=== PATIENT | female | born 1955 | race African-American/Black ===

== ENCOUNTER 2019-12-06 14:51 | Observation (INO) | payer MEDICARE ==
--- NOTE | 2019-12-06 16:01 | RAD ---
Chest 2 views HISTORY: Chest pain. FINDINGS: Cardiac silhouette and pulmonary vasculature are unremarkable. Mediastinum is midline. No confluent airspace consolidation, pneumothorax, or pleural fluid. There are prominent degenerative changes of the thoracic spine and shoulders. IMPRESSION : No active cardiopulmonary abnormalities are demonstrated.
[2019-12-06] MEDS ORDERED: Mag-Al 1200 mg/1200 mg/30 ML UDCUP ONE (16:16)
[2019-12-06] MEDS ORDERED: Aspirin Chewable 81 MG TAB ONE (16:16)
[2019-12-06] MEDS ORDERED: Lidocaine Viscous Sol 2% 15 ml UD Cup ONE (16:16)
[2019-12-06 16:24] LABS: #Eosinphils 0.2 thou/uL (0.0-0.7); #Lymphocytes 2.6 thou/uL (1.20-3.40); #Monocytes 0.8 thou/uL (0.11-0.59); #Neutrophils 2.2 thou/uL (1.40-6.50); %Basophils 0.3 % (0.0-1.0); %Eosinophils 3.9 % (0.0-10.0); %Lymphocytes 45.2 % (21.0-51.0); %Monocytes 13.1 % (0.0-10.0); %Neutrophils 37.5 % (42.0-75.0); Hemoglobin 8.9 g/dL (12.0-16.0); Mean Corpuscular HGB CONC 30.2 g/dL (32.0-36.0); Mean Corpuscular Hemoglobin 22.6 pg (27.0-31.0); Mean Corpuscular Volume 75.1 fL (78.0-98.0); Mean Platelet Volume 9.6 fL (7.4-10.4); Platelet Count 301 thou/uL (130-400); RBC Distribution Width 16.6 % (11.5-14.5); Red Blood Cell (RBC) Count 3.94 mill/uL (4.20-5.40); White Blood Cell (WBC) Count 5.8 thou/uL (4.8-10.8)
[2019-12-06 16:48] LABS: ALT (SGPT) 16 U/L (8-55); AST (SGOT) 21 U/L (5-34); Albumin 4.1 g/dL (3.4-4.8); Alkaline Phosphatase 121 U/L (40-110); Anion Gap 12 mmol/L (10-20); BUN (Urea Nitrogen) 19 mg/dL (9.8-20.1); Bilirubin, Total 0.2 mg/dL (0.2-1.2); CK (CPK) 222 U/L (29-168); Calc. Creatinine Clearance 0 mL/min (70-130); Carbon Dioxide 26 mmol/L (23-31); Chloride 109 mmol/L (98-107); Estimated GFR-MDRD 61; Globulin 2.7 g/dL (2.4-3.5); Glucose 82 mg/dL (80-115); Lipase 21 U/L (8-78); Potassium 4.4 mmol/L (3.5-5.1); Protein, Total 6.8 g/dL (6.0-8.3); Sodium 143 mmol/L (136-145)
--- NOTE | 2019-12-06 17:56 | PDOC.FPRHP ---
- History of Present Illness Chief Complaint: CP History of Present Illness: 64 y/o F with pmhx of GERD, chronic back pain, HTN, and HLD presents to ED with CP in evenings for X3 days. PT states she has had upper right back pain that radiates to the chest n the evneings the past 3 days, described as sharp and grabbing pain substernally. This pain is exacerbated by bending over and movement. Alleviated by nothing. she c/o acid reflux increased the past 3 days Pt states she has been taking ibuprofen, tramadol and "advil," the past few days due to the back pain. She did not know advil and ibuprofen were the same drug. Had a EGD and colon 06/2019 but unsure of the results. c/o dizziness and vertigo. denies n/v/d/abd pain. ED course: given a GI cocktail and ASA 325 mg, which alleviated her pain. CXR: no acute findings trop 0.024 CK 222 h/h 8.9/29.6 cr 1.09 - Allergies/Adverse Reactions Allergies Allergy/AdvReac Type Severity Reaction Status Date / Time No Known Allergies Allergy Unverified 12/06/19 19:05 - Home Medications Medication Instructions Recorded Confirmed Type Gabapentin 300 mg PO BID 12/06/19 12/06/19 History Hydrochlorothiazide 12.5 mg PO DAILY 12/06/19 12/06/19 History Meclizine HCl 25 mg PO BID PRN 12/06/19 12/06/19 History Pantoprazole Sodium 1 tab PO DAILY 12/06/19 12/06/19 History amLODIPine Bes/Olmesartan Med 1 each PO DAILY 12/06/19 12/06/19 History [Kayli 10-20 mg Tablet] traMADol HCl [Tramadol HCl] 50 mg PO TID PRN 12/06/19 12/06/19 History - History PMHx: GERD, HTN, HLD, chronic back pain PSHx: appendectomy, cholecystectomy, carpal tunnel sx, hysterectomy, tonsilectomy FHx: mother: uterine CA, CVA and [place] Social: quit smoking in 2001, prior 20 pack year. denies drug use. Drinks occasional glass of wine. - Review of Systems General: denies: fever/chills Eyes: denies: vision changes ENT: denies: nasal congestion Respiratory: denies: cough, shortness of breath Cardiovascular: reports: chest pain. denies: palpitation, edema, paroxysmal nocturnal dyspnea, orthopnea Gastrointestinal: denies: nausea, vomiting, diarrhea, constipation, abdominal pain Skin: denies: rashes Musculoskeletal: reports: pain (r upper back), tenderness, stiffness Neurological: denies: numbness, syncope Psychological: denies: anxiety - Vital signs BP: 142/66 HR: 86 RR: 16 Tmax: 98.3F Pox: 99% on ra Wt: - Physical Exam Constitutional: NAD, awake, alert and oriented, well developed -Constitutional: sitting up eating dinner upon initial exam. HEENT: normocephalic and atraumatic, PERRLA, EOMI, conjunctiva clear, grossly normal vision, grossly normal hearing, MMM Neck: supple, trachea midline Heart: RRR, normal S1/S2, no murmurs/rubs/gallops Lungs: no respiratory distress, good air movement, no wheezing, other (slight bibasilar crackles) Abdomen: soft, non-tender, bowel sounds present Musculoskeletal: normal structure, normal tone, ROM grossly normal -Musculoskeletal: TTP of R thoracic spine paraspinal musculature. TART changes to R thoracic spine. Neurological: no focal deficit, normal sensation Skin: no rash/lesions, capillary refill <2 seconds Heme/Lymphatic: no unusual bruising or bleeding, no purpura, no petechia Psychiatric: normal mood and affect, good judgment and insight, intact recent and remote memory FMR H&P: Results - Labs Result Diagrams: 12/07/19 03:58 12/07/19 03:58 Lab results: WBC 5.8 thou/uL (4.8-10.8) 12/06/19 16:08 Hgb 8.9 g/dL (12.0-16.0) L 12/06/19 16:08 Hct 29.6 % (36.0-47.0) L 12/06/19 16:08 MCV 75.1 fL (78.0-98.0) L 12/06/19 16:08 Plt Count 301 thou/uL (130-400) 12/06/19 16:08 Neutrophils % 37.5 % (42.0-75.0) L 12/06/19 16:08 Sodium 143 mmol/L (136-145) 12/06/19 16:08 Potassium 4.4 mmol/L (3.5-5.1) 12/06/19 16:08 Chloride 109 mmol/L (98-107) H 12/06/19 16:08 Carbon Dioxide 26 mmol/L (23-31) 12/06/19 16:08 BUN 19 mg/dL (9.8-20.1) 12/06/19 16:08 Creatinine 1.09 mg/dL (0.6-1.1) 12/06/19 16:08 Glucose 82 mg/dL (80-115) 12/06/19 16:08 Calcium 9.0 mg/dL (7.8-10.44) 12/06/19 16:08 Total Bilirubin 0.2 mg/dL (0.2-1.2) 12/06/19 16:08 AST 21 U/L (5-34) 12/06/19 16:08 ALT 16 U/L (8-55) 12/06/19 16:08 Alkaline Phosphatase 121 U/L (40-110) H 12/06/19 16:08 Creatine Kinase 222 U/L (29-168) H 12/06/19 16:08 Serum Total Protein 6.8 g/dL (6.0-8.3) 12/06/19 16:08 Albumin 4.1 g/dL (3.4-4.8) 12/06/19 16:08 Lipase 21 U/L (8-78) 12/06/19 16:08 - Radiology Interpretation Chest x-ray Status: report reviewed by me (no acute findings) FMR H&P: A/P - Problem List (1) Upper back pain on right side Current Visit: Yes Status: Acute Code(s): M54.9 - DORSALGIA, UNSPECIFIED (2) NSAID induced gastritis Current Visit: Yes Status: Acute Code(s): K29.60 - OTHER GASTRITIS WITHOUT BLEEDING; T39.395A - ADVERSE EFFECT OF NONSTEROIDAL ANTI-INFLAMMATORY DRUGS, INIT (3) Atypical chest pain Current Visit: Yes Status: Acute Code(s): R07.89 - OTHER CHEST PAIN (4) Chronic GERD Current Visit: Yes Status: Chronic Code(s): K21.9 - GASTRO-ESOPHAGEAL REFLUX DISEASE WITHOUT ESOPHAGITIS (5) HTN (hypertension) Current Visit: Yes Status: Chronic Code(s): I10 - ESSENTIAL (PRIMARY) HYPERTENSION (6) HLD (hyperlipidemia) Current Visit: Yes Status: Chronic Code(s): E78.5 - HYPERLIPIDEMIA, UNSPECIFIED - Plan 64 y/o F admitted to tele obs for ACS rule out, probable gastritis with NSAID misuse form R upper back pain 1. ACS rule out for atypical CP - ordered stress test, Heart score of 4 - CP most likely associated with MSK upper back pain and strain, vs acute gastritis/esophagitis form NSAID misuse. 2. Probably gastritis or Esophagitis from NSAID misuse - hold NSAID's - continue Protonix - FOBT ordered - h/h: 8.9/29.6, MCV 75 3. R upper back MSK strain - tylenol and tramadol for pain control - Likely cause of atypical CP - lidocaine patch ordered 4. Microcytic Anemia - H/H 8.9/29.6, MCV 75 - iron studies, b12 and folate ordered 5. Long standing GERD hx - Last EGD at least 3 years ago per ot - Takes protonix at night - changed protonix to AM 30 min before breakfast and BID pepcid PRN 6. Hx of HTN - continue home medications 7. Hx of HLD - continue home meds Code status: full code VTE ppx: SCDs diet: HH, NPo at midnight Dispo: stable, tele obs for ACS rule out. FMR H&P: Upper Level - Plan Date/Time: 12/06/19 [id number] Bradley Rucker, have evaluated this patient and agree with findings/plan as outlined by graphics intern resident. Pertinent changes/additions are listed here. This is a 64 yo female with a pmh of HLD and HTN who presents to the ED with a cc of chest pain. She states the pain has been off and on for the last three days and is worse with bending over. She has associated nausea, vomiting, dizziness. She denies SOB or diaphoresis. She states nothing makes this pain better or worse. She reports a history of smoking. She states her pain starts in her back and moves to the front. Objective: Vitals: BP 142/59, HR 73, RR 20, Temp 98.3, SpO2 97 on RA, Wt 111 kg General: NAD HEENT: AT/NC, mmm Cardio: RRR, pain with palpation of back this is the same pain she has been feeling Lungs: CTAB Extremities: Cap refill <2, no swelling Please see graphics intern note for further historical details and chronic condition management A/P Atypical Chest pain, likely 2/2 peptic ulcer vs MSK -Admit to tele obs -Trop 0.024, will trend x3 -Heart score of 5 -CXR: no active cardiopulmonary abnormalities -AM stress test -Home protonix -EKG shows NSR Microcytic anemia -Hgb 8.9, MCV 75.1 -Pending iron studies, folate, B12, and occult blood -Pt may have peptic ulcer given her increase in NSAID use, discussed stopping NSAIDS at this time Chronic conditions HTN HLD Code: Full Prophylaxis: Lovenox Family: None at bedside Fluids: SL Diet: HH, NPO at midnight Disopsition: DC in 1-2 days PCP: ZOILA Addendum - Attending - Attending Attestation Date/Time: 12/07/19 [id number] I personally evaluated the patient and discussed the management with the team. I agree with the History, Examination, Assessment and Plan documented above with any addition or exceptions noted below.
[2019-12-06 18:16] VITALS: BMI 42.9
[2019-12-06] MEDS ORDERED: Ondansetron ODT 4 MG TAB PO PRN (19:10)
[2019-12-06] MEDS ORDERED: Acetaminophen 325 MG TAB PO PRN (19:10)
[2019-12-06] MEDS ORDERED: Meclizine HCl 25 MG TAB PO PRN (19:14)
[2019-12-06] MEDS ORDERED: traMADol HCl 50 MG TAB PO PRN (19:14)
[2019-12-06] MEDS: Gabapentin 300 MG CAP PO SCH (20:06)
[2019-12-06] MEDS: Famotidine 20 MG TAB PO SCH (20:30)
[2019-12-06 21:40] LABS: Iron 15 ug/dL (50-170); Iron Binding Capacity, Total 368 mcg/dL (265-497)
[2019-12-06 21:45] LABS: Troponin I 0.019 ng/mL (< 0.028)
[2019-12-06 21:53] LABS: Troponin I 0.019 ng/mL (< 0.028)
[2019-12-06 22:07] LABS: Ferritin 6.55 ng/mL (10-291)
[2019-12-07 04:51] LABS: Anion Gap 12 mmol/L (10-20); BUN (Urea Nitrogen) 15 mg/dL (9.8-20.1); Calc. Creatinine Clearance 104 mL/min (70-130); Calcium 8.9 mg/dL (7.8-10.44); Carbon Dioxide 25 mmol/L (23-31); Cardiac Risk 4.1 (Less than 4.5); Chloride 110 mmol/L (98-107); Cholesterol 163 mg/dl (< 200 Desired); Estimated GFR-MDRD 71; Glucose 84 mg/dL (80-115); HDL Cholesterol 40 mg/dL (>60 Neg Risk); LDL Cholesterol, Calculated 107 mg/dL; Potassium 4.1 mmol/L (3.5-5.1); Sodium 143 mmol/L (136-145); Triglycerides 80 mg/dL (Less than 150)
[2019-12-07 05:19] LABS: Eosinophils 6 % (0-10); Hypochromia SLIGHT = 6-15 cells (100X) (0-5/hpf); Lymphocytes 46 % (21-51); MDiff Complete? YES; Mean Corpuscular HGB CONC 30.5 g/dL (32.0-36.0); Mean Corpuscular Volume 75.5 fL (78.0-98.0); Mean Platelet Volume 9.9 fL (7.4-10.4); Microcytosis SLIGHT = 6-15 cells (100X) (0-5/hpf); Monocytes 10 % (0-10); Neutrophil 38 % (42-75); Platelet Count 282 thou/uL (130-400); Platelet Morphology Comment Appears Adequate; RBC Distribution Width 16.6 % (11.5-14.5); Red Blood Cell (RBC) Count 3.93 mill/uL (4.20-5.40); White Blood Cell (WBC) Count 4.8 thou/uL (4.8-10.8)
--- NOTE | 2019-12-07 06:41 | PDOC.FM ---
- Subjective Subjective: Pt reports chest pain is gone this morning. She denies SOB. Reports she previously saw heart doctor and was stressed 3 years ago, reported results were normal. - Objective MAR Reviewed: Yes Vital Signs & Weight: Vital Signs (12 hours) Temp Pulse Resp BP Pulse Ox 12/07/19 04:00 97.5 F L 65 18 129/62 97 12/06/19 23:46 78 154/75 H 12/06/19 19:21 98.3 F 86 16 142/66 H 99 Weight Weight 113.398 kg I&O: 12/05/19 12/06/19 12/07/19 06:59 06:59 06:59 Intake Total 800 Balance 800 Result Diagrams: 12/07/19 03:58 12/07/19 03:58 Phys Exam - Physical Examination Constitutional: NAD Respiratory: no wheezing, clear to auscultation bilateral Cardiovascular: RRR, no significant murmur Gastrointestinal: soft, no distention Musculoskeletal: edema present (trace) Neurological: non-focal Psychiatric: normal affect, A&O x 3 Dx/Plan (1) Upper back pain on right side Code(s): M54.9 - DORSALGIA, UNSPECIFIED Status: Acute (2) NSAID induced gastritis Code(s): K29.60 - OTHER GASTRITIS WITHOUT BLEEDING; T39.395A - ADVERSE EFFECT OF NONSTEROIDAL ANTI-INFLAMMATORY DRUGS, INIT Status: Acute (3) Atypical chest pain Code(s): R07.89 - OTHER CHEST PAIN Status: Acute (4) Chronic GERD Code(s): K21.9 - GASTRO-ESOPHAGEAL REFLUX DISEASE WITHOUT ESOPHAGITIS Status: Chronic (5) HTN (hypertension) Code(s): I10 - ESSENTIAL (PRIMARY) HYPERTENSION Status: Chronic (6) HLD (hyperlipidemia) Code(s): E78.5 - HYPERLIPIDEMIA, UNSPECIFIED Status: Chronic - Plan Plan: 64 y/o F admitted to tele obs for ACS rule out, probable gastritis with NSAID misuse form R upper back pain ACS rule out for atypical CP - ordered stress test, Heart score of 4 - CP most likely associated with MSK upper back pain and strain, vs acute gastritis/esophagitis form NSAID misuse. - A1C 5.3 - FLP: LDL 107, Cholesterol 163. TG, HDL wnl. Probably gastritis or Esophagitis from NSAID misuse Long-standing GERD hx - hold NSAID's - continue Protonix - FOBT ordered - Last EGD at least 3 years ago per pt. Requested records. - Takes protonix at night - changed protonix to AM 30 min before breakfast and BID pepcid PRN Chronic iron deficiency anemia - iron supplementation on d/c - b12/folate wnl R upper back MSK strain - tylenol and tramadol for pain control - lidocaine patch ordered Hx of HTN - continue home medications Hx of HLD - continue home meds Code status: full code VTE ppx: SCDs diet: HH, NPo at midnight Dispo: stable, tele obs for ACS rule out. Possible d/c today if stress normal. Needs new PCP since Diony retired. Addendum - Attending - Attending Attestation Date/Time: 12/07/19 1321 I personally evaluated the patient and discussed the management with Dr. Cameron. I agree with the History, Examination, Assessment and Plan documented above with any addition or exceptions noted below. Patient has been ruled out for ACS. Stress test in progress. Likely dc once negative result or cardiology consult if abnormal.
[2019-12-07 07:03] LABS: Hemoglobin A1c 5.3 % (4.0-6.0)
[2019-12-07] MEDS: Hydrochlorothiazide 25 MG TAB PO SCH (08:41)
[2019-12-07] MEDS: Ferrous Fumarate 324 MG TAB PO SCH (08:41)
[2019-12-07] MEDS: Famotidine 20 MG TAB PO SCH ×2 (08:41→20:00)
[2019-12-07] MEDS: Lidocaine 5% Patch TD SCH (08:42)
[2019-12-07] MEDS: Amlodipine 10 MG TAB PO SCH (08:42)
[2019-12-07] MEDS: Gabapentin 300 MG CAP PO SCH ×2 (08:42→20:00)
[2019-12-07] MEDS: Losartan 25 MG TAB PO SCH (08:51)
[2019-12-07] MEDS ORDERED: OLMESARTAN MED PO SCH (09:00)
[2019-12-07] MEDS ORDERED: AMLODIPINE BES PO SCH (09:00)
[2019-12-07] MEDS ORDERED: Prevnar 13-Val Conj/PF 0.5 ML SYRINGE IM ONE (09:00)
[2019-12-07] MEDS ORDERED: Docusate 100 MG CAP PO PRN (15:53)
[2019-12-07] MEDS ORDERED: Polyethylene Glycol 3350 17 GM Packet PO SCH (20:00)
[2019-12-07] MEDS ORDERED: Lidocaine Patch Removal TOP SCH (21:00)
--- NOTE | 2019-12-08 05:42 | PDOC.FM ---
- Subjective Subjective: Pt sleeping comfortably. Reported constipation yesterday. Gave miralax and colace. NPO for 2nd part of stress test this AM. - Objective MAR Reviewed: Yes Vital Signs & Weight: Vital Signs (12 hours) Temp Pulse Resp BP BP Pulse Ox 12/08/19 03:49 97.8 F 67 18 140/64 98 12/07/19 19:30 98.1 F 77 18 136/62 97 Weight Admit Weight 113.398 kg Weight 112.854 kg I&O: 12/06/19 12/07/19 12/08/19 06:59 06:59 06:59 Intake Total 800 480 Balance 800 480 Result Diagrams: 12/07/19 03:58 12/07/19 03:58 Phys Exam - Physical Examination Constitutional: NAD (sleeping) Respiratory: no wheezing (snoring), clear to auscultation bilateral overnight telemetry NSR 60-70 bpm Gastrointestinal: no distention Musculoskeletal: no edema Dx/Plan (1) Upper back pain on right side Code(s): M54.9 - DORSALGIA, UNSPECIFIED Status: Acute (2) NSAID induced gastritis Code(s): K29.60 - OTHER GASTRITIS WITHOUT BLEEDING; T39.395A - ADVERSE EFFECT OF NONSTEROIDAL ANTI-INFLAMMATORY DRUGS, INIT Status: Acute (3) Atypical chest pain Code(s): R07.89 - OTHER CHEST PAIN Status: Acute (4) Chronic GERD Code(s): K21.9 - GASTRO-ESOPHAGEAL REFLUX DISEASE WITHOUT ESOPHAGITIS Status: Chronic (5) HTN (hypertension) Code(s): I10 - ESSENTIAL (PRIMARY) HYPERTENSION Status: Chronic (6) HLD (hyperlipidemia) Code(s): E78.5 - HYPERLIPIDEMIA, UNSPECIFIED Status: Chronic - Plan Plan: 64 y/o F admitted to tele obs for ACS rule out, probable gastritis with NSAID misuse form R upper back pain ACS rule out for atypical CP - Heart score of 4 - CP most likely associated with MSK upper back pain and strain, vs acute gastritis/esophagitis form NSAID misuse. - Chest pain resolved since yesterday w/ GI cocktail Probably gastritis or Esophagitis from NSAID misuse Long-standing GERD hx - hold NSAID's - continue Protonix - FOBT ordered - Last EGD at least 3 years ago per pt. Requested records. Chronic iron deficiency anemia - iron supplementation continued. - b12/folate wnl R upper back MSK strain - tylenol and tramadol for pain control Hx of HTN - continue home medications Hx of HLD - continue home meds Code status: full code VTE ppx: SCDs Diet: NPO for completion of stress test today Dispo: stable, tele obs. D/c if stress normal. Cardiology consult if abnormal. Addendum - Attending - Attending Attestation Date/Time: 12/08/19 1030 I personally evaluated the patient and discussed the management with Dr. Cameron. I agree with the History, Examination, Assessment and Plan documented above with any addition or exceptions noted below. Patient stable. Awaiting stress test results and hopeful discharge with negative result.
[2019-12-08] MEDS: Ferrous Fumarate 324 MG TAB PO SCH (09:12)
[2019-12-08] MEDS: Amlodipine 10 MG TAB PO SCH (09:12)
[2019-12-08] MEDS: Famotidine 20 MG TAB PO SCH (09:13)
[2019-12-08] MEDS: Hydrochlorothiazide 25 MG TAB PO SCH (09:13)
[2019-12-08] MEDS: Gabapentin 300 MG CAP PO SCH (09:13)
[2019-12-08] MEDS: Losartan 25 MG TAB PO SCH (09:14)
[2019-12-08] MEDS: Lidocaine 5% Patch TD SCH (09:14)
[2019-12-08 11:07] VITALS: BP 133/63; TEMP 97.9
--- NOTE | 2019-12-08 11:12 | NM ---
NUCLEAR MEDICINE CARDIAC MYOCARDIAL PERFUSION SPECT EJECTION FRACTION STUDY WALL MOTION CINE: DATE: 12/08/2019 HISTORY: 64-year-old hypertensive female smoker with dyslipidemia presents with chest pain. TECHNIQUE: Number of days: 2 Rest study: Technetium 99m-sestamibi (Cardiolite) dose: 28.7 mCi Pharmacologic stress: Adenosine dose: 63.3 mg Stress study: Technetium 99m-sestamibi (Cardiolite) dose: 32.3 mCi FINDINGS: CARDIAC (MYOCARDIAL PERFUSION) SPECT There are no reversible myocardial perfusion defects. EJECTION FRACTION STUDY Left ventricular EF = 69% % WALL MOTION CINE Normal IMPRESSION: No evidence of reversible ischemia.
--- NOTE | 2019-12-08 15:09 | EKG ---
Test Reason : Blood Pressure : / mmHG Vent. Rate : 079 BPM Atrial Rate : 079 BPM P-R Int : 156 ms QRS Dur : 100 ms QT Int : 398 ms P-R-T Axes : 052 024 034 degrees QTc Int : 456 ms Normal sinus rhythm Normal ECG No previous ECGs available Confirmed by AMY VEGA, YANNA Donohue ([id number]), movie editor EFREM MUNIZ ([id number]) on 12/08/2019 3:09:23 PM Referred By: Confirmed By:YANNA REYES MD
--- NOTE | 2019-12-09 13:11 | DIS ---
DATE OF ADMISSION: 12/06/2019 DATE OF DISCHARGE: 12/08/2019 RESIDENT: Liss Cameron MD ADMITTING ATTENDING: Delfin Hopkins MD DISCHARGE ATTENDING: Gino Hinson MD CONSULTS: None. PROCEDURES: 1. Chest x-ray. No active cardiopulmonary abnormalities demonstrated. 2. Electrocardiogram. Normal sinus rhythm. 3. Nuclear medicine stress test. No evidence of reversible ischemia. Left ventricular ejection fraction 69%. PRIMARY DIAGNOSES: 1. Atypical chest pain. 2. Longstanding history of gastroesophageal reflux disease. 3. Long-term NSAID use. 4. Chronic iron-deficiency anemia. SECONDARY DIAGNOSES: 1. Musculoskeletal back pain. 2. Hypertension. 3. Hyperlipidemia. DISCHARGE MEDICATIONS: 1. Tylenol 650 mg p.o. q.4 hours as needed. 2. Ferrous fumarate 324 mg p.o. every morning with breakfast. 3. Amlodipine/olmesartan 10/20 one tab p.o. daily. 4. Meclizine 25 mg p.o. twice daily as needed. 5. Gabapentin 300 mg p.o. twice daily. 6. Hydrochlorothiazide 12.5 mg p.o. daily. 7. Tramadol 50 mg p.o. 3 times daily as needed. 8. Pantoprazole 40 mg one tab p.o. twice daily. DISCONTINUED MEDICATIONS: None. HPI AND HOSPITAL COURSE: Ronnie Bradley is a 64-year-old female with past medical history of GERD, chronic back pain, hypertension, hyperlipidemia, who presented to the emergency room with chest pain, which has been ongoing for about 3 days. She reported that the pain radiated to her back. The pain was sharp and substernal. The patient's pain resolved with a GI cocktail in the emergency room. Due to the patient's chronic back pain, she does take ibuprofen and Advil almost daily due to her pain. 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 She also takes a baby aspirin in the morning with her coffee. When evaluating her GERD, the patient says she loves spicy foods and eats a lot of tomatoes. The patient's chest x-ray showed no acute findings. Her troponin was 0.024, 0.019, and 0.019. Her electrolytes were largely normal. She was anemic on presentation with a hemoglobin of 8.9, hematocrit of 29.6, and MCV of 75.1. Anemia labs were ordered and included an iron at 15, TIBC 368, ferritin 6.55, vitamin B12 is 694, and folate at 12.10. The patient had complained of not being able to stool, but when she did stool that she would have some blood. Fecal occult blood was positive. The patient overall was stable, and to rule out a cardiac cause of her chest pain, a cardiac stress test was performed, which showed that the results were normal. The patient was then discharged home. DISPOSITION: Stable. DISCHARGE INSTRUCTIONS: Location: home. Activity: As tolerated. Diet: Heart healthy, GERD precautions given. Avoid NSAIDs. Followup: Follow up with primary care provider in 3 to 7 days and with [facility] in a week. We increased her Protonix here on her stay and recommend that she be seen for possible gastritis or esophagitis from NSAID use and uncontrolled GERD. Job ID: [id number]
== END 2019-12-08 13:50 | disposition home or self-care (01) ==
LOC: ERS 14:51 → 2NO 18:07
PROVIDERS: ADMIT Emergency Medicine; ATTEND Emergency Medicine
DX: R07.89 Other chest pain (principal); K21.9 Gastro-esophageal reflux disease without esophagitis; D50.8 Other iron deficiency anemias; G89.29 Other chronic pain; M54.9 Dorsalgia, unspecified; I10 Essential (primary) hypertension; E78.5 Hyperlipidemia, unspecified; E78.00 Pure hypercholesterolemia, unspecified; K59.00 Constipation, unspecified; Z87.891 Personal history of nicotine dependence; Z79.899 Other long term (current) drug therapy
CPT/HCPCS: 71046; 78452; 80048; 80053; 80061; 82274; 82550; 82607; 82728; 82746; 83036; 83540; 83550; 83690; 84484 ×2; 85025 ×2; 93005; 93017; 94760 ×3; 97139; 99285; A9500; G0378 ×4; 36415; J0153

== ENCOUNTER 2020-07-21 14:38 | Outpatient (CLI) | payer MEDICARE ==
--- NOTE | 2020-08-06 15:43 | MMO ---
Bilateral MAMMO Bilat Screen [facility]+MO. CLINICAL HISTORY: Patient is 64 years old and is seen for screening. The patient has no family history of breast cancer. The patient has no personal history of cancer. VIEWS: The views performed were: bilateral craniocaudal with tomosynthesis and bilateral mediolateral oblique with tomosynthesis. FILMS COMPARED: The present examination has been compared to prior imaging studies performed at [facility] on 09/19/2008, 04/23/2011, 09/06/2013 and 02/07/2018. This study has been interpreted with the assistance of computer-aided detection. MAMMOGRAM FINDINGS: The breasts are almost entirely fat. There are no suspicious masses, suspicious calcifications, or new areas of architectural distortion. IMPRESSION: THERE IS NO MAMMOGRAPHIC EVIDENCE OF MALIGNANCY. A ROUTINE FOLLOW-UP MAMMOGRAM IN 1 YEAR IS RECOMMENDED. THE RESULTS OF THIS EXAM WERE SENT TO THE PATIENT. ACR BI-RADS Category 1 - Negative MAMMOGRAPHY NOTE: 1. A negative mammogram report should not delay a biopsy if a dominant of clinically suspicious mass is present. 2. Approximately 10% to 15% of breast cancers are not detected by mammography. 3. Adenosis and dense breasts may obscure an underlying neoplasm. Reported by: ENA MCCARTHY MD Electonically Signed: [id number]
== END 2020-07-21 14:39 | disposition home or self-care (01) ==
LOC: BICMAMMO 14:38
PROVIDERS: ATTEND Nurse Practitioner Family
DX: Z12.31 Encounter for screening mammogram for malignant neoplasm of breast (principal)
CPT/HCPCS: 77063; 77067

== ENCOUNTER 2020-07-23 14:53 | Outpatient (CLI) | payer MEDICARE ==
--- NOTE | 2020-07-23 15:38 | ULT ---
Thyroid sonogram HISTORY: Thyromegaly. FINDINGS: Right thyroid lobe measures up to 5.3 cm length and left 4.9 cm. Isthmus is 0.4 cm thick. Thyroid gland has a homogeneous echotexture. No masses evident. IMPRESSION : On average, thyroid gland is upper limits of normal in size. Please correlate for patient's relative body size and the possibility of enlargement. No masses evident.
== END 2020-07-23 14:54 | disposition home or self-care (01) ==
LOC: BICULT 14:53
PROVIDERS: ATTEND Nurse Practitioner Family
DX: E01.0 Iodine-deficiency related diffuse (endemic) goiter (principal)
CPT/HCPCS: 76536

== ENCOUNTER 2020-10-23 18:33 | Emergency (ER) | payer MEDICARE ==
[~2020-10-23 18:33] MED LIST: Iopamidol-370 76% 500 ML 1 ML ONE
[2020-10-23 20:12] LABS: Bilirubin Negative (Negative); Blood, Urine Negative (Negative); Clarity Clear (Clear); Glucose, Urine (Dipstick) Normal (Negative); Ketone, Urine Negative (Negative); Leukocyte Negative Leu/uL (Negative); Nitrite Negative (Negative); Protein, Urine (Dipstick) 10 mg/dL (Neg-Trace); Specific Gravity, Urine 1.034 (1.002-1.036); pH, Urine 5.5 (5.0-9.0)
[2020-10-23 20:23] LABS: #Eosinphils 0.2 thou/uL (0.0-0.7); #Lymphocytes 2.4 thou/uL (1.20-3.40); #Monocytes 0.8 thou/uL (0.11-0.59); #Neutrophils 3.7 thou/uL (1.40-6.50); %Basophils 0.3 % (0.0-1.0); %Eosinophils 2.7 % (0.0-10.0); %Lymphocytes 34.1 % (21.0-51.0); %Monocytes 10.7 % (0.0-10.0); %Neutrophils 52.1 % (42.0-75.0); Hemoglobin 10.3 g/dL (12.0-16.0); Mean Corpuscular HGB CONC 31.5 g/dL (32.0-36.0); Mean Corpuscular Hemoglobin 24.1 pg (27.0-31.0); Mean Corpuscular Volume 76.3 fL (78.0-98.0); Mean Platelet Volume 10.2 fL (7.4-10.4); Platelet Count 230 thou/uL (130-400); RBC Distribution Width 17.4 % (11.5-14.5); Red Blood Cell (RBC) Count 4.27 mill/uL (4.20-5.40); White Blood Cell (WBC) Count 7.1 thou/uL (4.8-10.8)
[2020-10-23 20:33] LABS: ALT (SGPT) 11 U/L (8-55); AST (SGOT) 15 U/L (5-34); Albumin 3.8 g/dL (3.4-4.8); Alkaline Phosphatase 140 U/L (40-110); Anion Gap 12 mmol/L (10-20); BUN (Urea Nitrogen) 17 mg/dL (9.8-20.1); Bilirubin, Total 0.2 mg/dL (0.2-1.2); Calc. Creatinine Clearance 0 mL/min (70-130); Calcium 8.6 mg/dL (7.8-10.44); Carbon Dioxide 24 mmol/L (23-31); Chloride 111 mmol/L (98-107); Globulin 3.2 g/dL (2.4-3.5); Glucose 88 mg/dL (80-115); Lipase 25 U/L (8-78); Potassium 3.8 mmol/L (3.5-5.1); Sodium 143 mmol/L (136-145)
[2020-10-23] MEDS ORDERED: Ketorolac Tromethamine 30 MG/ML VIAL ONE (22:48)
== END 2020-10-23 22:53 | disposition home or self-care (01) ==
LOC: ERS 18:33
DX: R10.30 Lower abdominal pain, unspecified (principal); I70.90 Unspecified atherosclerosis; M54.5 Low back pain; E78.5 Hyperlipidemia, unspecified; E78.00 Pure hypercholesterolemia, unspecified; I10 Essential (primary) hypertension; Z87.891 Personal history of nicotine dependence; Z79.899 Other long term (current) drug therapy
CPT/HCPCS: 36415; 74177; 80053; 81003; 83690; 85025; 96374; J1885; Q9967